=== PATIENT | female | born 2000 | race American Indian/Alaskan Native ===

== ENCOUNTER 2020-06-24 22:02 | Emergency (ER) | payer BC ==
[2020-06-24] MEDS ORDERED: Ondansetron 4 MG Tab.DIS PO ONE (22:22)
--- NOTE | 2020-06-24 22:26 | EDM.PDOC ---
ED HPI GENERAL MEDICAL PROBLEM - General Chief Complaint: Gastrointestinal Problem Stated Complaint: FOOD POISIONING Time Seen by Provider: 06/24/20 22:21 Source of Information: Reports: Patient, RN, RN Notes Reviewed History Limitations: Reports: No Limitations - History of Present Illness INITIAL COMMENTS - FREE TEXT/NARRATIVE: 19 year old female who presents to the ER after an emesis episode. 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 She states he vomited after leaving the patient's bathroom. She is cimplaining ot nausea. Symptoms have been ongoing for two hours. She reports eating at [employer] about two hours prior to this and states she felt instantly sick after eating the [employer] wrap. She states her nephew had the stomach bug a couple of days ago. She denies any fevers, chills, SOB, palpitations, chest, and UTI symptoms. ED ROS GENERAL - Review of Systems Review Of Systems: Comprehensive ROS is negative, except as noted in HPI. ED EXAM, GI/ABD - Physical Exam Exam: See Below Exam Limited By: No Limitations General Appearance: Alert, No Apparent Distress, Obese Eyes: Bilateral: Normal Appearance Ears: Normal External Exam, Normal Canal, Hearing Grossly Normal, Normal TMs Nose: Normal Inspection, Normal Mucosa, No Blood Throat/Mouth: Normal Inspection, Normal Lips, Normal Gums, Normal Oropharynx, Normal Voice, No Airway Compromise Head: Atraumatic, Normocephalic Neck: Normal Inspection, Supple, Non-Tender, Full Range of Motion Respiratory/Chest: No Respiratory Distress, Lungs Clear, Normal Breath Sounds, No Accessory Muscle Use, Chest Non-Tender Cardiovascular: Normal Peripheral Pulses, Regular Rate, Rhythm, No Edema, No Gallop, No JVD, No Murmur, No Rub GI/Abdominal Exam: Normal Bowel Sounds, Soft, Non-Tender, No Organomegaly, No Distention, No Abnormal Bruit, No Mass (Female) Exam: Deferred Rectal (Female) Exam: Deferred Back Exam: Normal Inspection, Full Range of Motion, NT Extremities: Normal Inspection, Normal Range of Motion, Non-Tender, Normal Capillary Refill, No Pedal Edema Neurological: Alert, Oriented Psychiatric: Normal Affect, Normal Mood Skin Exam: Warm Lymphatic: No Adenopathy Course - Vital Signs Last Recorded V/S: Last Vital Signs Temp 98.1 F 06/24/20 22:10 Pulse 130 H 06/24/20 22:10 Resp 16 06/24/20 22:10 BP 125/87 06/24/20 22:10 Pulse Ox 100 06/24/20 22:10 - Orders/Labs/Meds Meds: Medications Discontinued Medications Generic Name Dose Route Start Last Admin Trade Name Edelmira PRN Reason Stop Dose Admin Ondansetron HCl 4 mg 06/24/20 22:22 06/24/20 22:28 Ondansetron 4 Mg Tab.Dis PO 06/24/20 22:23 4 mg ONETIME ONE Administration Departure - Departure Time of Disposition: 23:09 Disposition: Home, Self-Care 01 Condition: Fair Clinical Impression: Gastroenteritis - Discharge Information Instructions: Viral Gastroenteritis, Adult, [id number] Forms: ED Department Discharge Care Plan Goals: Zofran administered with relief. Encouraged to push fluids with a bland diet and advianced diet gradually as tolerated. Good hand hygiene. Follow up with PCP in the upcoming weeks and return to the ER if symptoms worsens. Sepsis Event Note (ED) - Evaluation Sepsis Screening Result: No Definite Risk - Focused Exam Vital Signs: Vital Signs Temp Pulse Resp BP Pulse Ox 06/24/20 22:10 98.1 F 130 H 16 125/87 100
== END 2020-06-24 23:25 | disposition home or self-care (01) ==
LOC: DL.ED 22:02
DX: K52.9 Noninfective gastroenteritis and colitis, unspecified (principal)
CPT/HCPCS: 99283; A9270

== ENCOUNTER 2020-08-27 18:26 | Emergency (ER) | payer BC ==
[2020-08-27 19:36] LABS: ANION GAP 13.2 mEq/L (7-13); CHLORIDE,CL 103 mmol/L (98-107); SODIUM,NA 139 mmol/L (136-145)
[2020-08-27 19:38] LABS: ACETAMINOPHEN 0 ug/mL (10-30 (Therapeutic))
[2020-08-27] MEDS ORDERED: Acetaminophen 325 MG Tab PO ONE (20:25)
--- NOTE | 2020-08-27 20:45 | EDM.PDOCBH ---
ED HPI GENERAL MEDICAL PROBLEM - General Chief Complaint: Behavioral/Psych Stated Complaint: AMBULANCE Time Seen by Provider: 08/27/20 19:50 Source of Information: Reports: Patient, Other History Limitations: Reports: No Limitations - History of Present Illness INITIAL COMMENTS - FREE TEXT/NARRATIVE: ED with c/o felling anxious and having suicidal thought. Reports no plan, just tired of feeling this way. has been on medications in past but not currently as out of refills and not reestablished care. - Related Data Allergies Allergy/AdvReac Type Severity Reaction Status Date / Time No Known Allergies Allergy Verified 08/27/20 20:26 Home Meds: Home Meds . [No Known Home Meds] 08/27/20 [History] Past Medical History Psychiatric History: Reports: Depression Social & Family History - Family History Family Medical History: No Pertinent Family History - Caffeine Use Caffeine Use: Reports: None - Alcohol Use Days Per Week of Alcohol Use: 7 Number of Drinks Per Day: 12 Total Drinks Per Week: 84 - Recreational Drug Use Recreational Drug Use: No ED ROS GENERAL - Review of Systems Review Of Systems: Comprehensive ROS is negative, except as noted in HPI. ED EXAM, BEHAVIORAL HEALTH - Physical Exam Exam: See Below Exam Limited By: No Limitations General Appearance: Alert, Anxious, Obese Eye Exam: Bilateral Eye: Normal Inspection Ears: Normal External Exam, Hearing Grossly Normal Throat/Mouth: Normal Voice Head: Atraumatic, Normocephalic Neck: Full Range of Motion Respiratory/Chest: No Respiratory Distress, Normal Breath Sounds Neurological: Alert, Normal Cognition, Oriented x 3 Psychiatric: Alert, Normal Cognition, Poor Eye Contact, Withdrawn. No: Suicidal Plan Skin Exam: Warm, Dry, Intact, Normal color COURSE, BEHAVIORAL HEALTH COMP - Course Vital Signs: Last Vital Signs Temp 98.5 F 08/27/20 18:58 Pulse 71 08/27/20 18:58 Resp 16 08/27/20 18:58 BP 129/85 08/27/20 18:58 Pulse Ox 99 08/27/20 18:58 Orders, Labs, Meds: Laboratory Tests 08/27/20 08/27/20 08/27/20 Range/Units 19:10 19:10 19:10 WBC 10.2 H (5.0-10.0) 10^3/uL RBC 5.05 (4.2-5.4) 10^6/uL Hgb 15.3 (12.0-16.0) g/dL Hct 45.6 (37.0-47.0) % MCV 90.3 (80-100) fL MCH 30.3 (27.0-34.0) pg MCHC 33.6 (33.0-35.0) g/dL Plt Count 351 (150-450) 10^3/uL Neut % (Auto) 71.8 (42.2-75.2) % Lymph % (Auto) 18.2 L (20.5-50.1) % [place] % (Auto) 8.6 H (2-8) % Eos % (Auto) 0.9 L (1.0-3.0) % Baso % (Auto) 0.5 (0.0-1.0) % Sodium 139 (136-145) mmol/L Potassium 4.2 (3.5-5.1) mmol/L Chloride 103 (98-107) mmol/L Carbon Dioxide 27 (21-32) mmol/L Anion Gap 13.2 H (7-13) mEq/L BUN 11 (7-18) mg/dL Creatinine 0.76 (0.55-1.02) mg/dL Est Cr Clr Drug Dosing 123.40 mL/min Estimated GFR (MDRD) > 60 BUN/Creatinine Ratio 14.5 (No establ ref range) Glucose 87 (70-99) mg/dL Calcium 8.6 (8.5-10.1) mg/dL Total Bilirubin 0.5 (0.2-1.0) mg/dL AST 21 (15-37) U/L ALT 30 (14-59) U/L Alkaline Phosphatase 83 (46-116) U/L Total Protein 7.6 (6.4-8.2) g/dL Albumin 3.8 (3.4-5.0) g/dL Globulin 3.8 Albumin/Globulin Ratio 1.0 HCG, Qual Negative Urine Color (YELLOW) Urine Appearance (CLEAR) Urine pH (5.0-9.0) Ur Specific [place] (1.005-1.030) Urine Protein (NEGATIVE) Urine Glucose (UA) (NEGATIVE) Urine Ketones (NEGATIVE) Urine Occult Blood (NEGATIVE) Urine Nitrite (NEGATIVE) Urine Bilirubin (NEGATIVE) Urine Urobilinogen (0.2-1.0) mg/dL Ur Leukocyte Esterase (NEGATIVE) Urine RBC /HPF Urine WBC (0-5/HPF) /HPF Ur Epithelial Cells (NOT SEEN) /HPF Amorphous Sediment (NOT SEEN) /HPF Urine Bacteria (0-FEW/HPF) /HPF Urine Mucus (NOT SEEN) /LPF Salicylates < 2.8 L (2.8-20(Therapeutic)) mg/dL Urine Opiates Screen (NEGATIVE) Ur Oxycodone Screen (NEGATIVE) Urine Methadone Screen (NEGATIVE) Acetaminophen 0 L (10-30 (Therapeutic)) ug/mL Ur Barbiturates Screen (NEGATIVE) U Tricyclic Antidepress (NEGATIVE) Ur Phencyclidine Scrn (NEGATIVE) Ur Amphetamine Screen (NEGATIVE) U Methamphetamines Scrn (NEGATIVE) Urine MDMA Screen (NEGATIVE) U Benzodiazepines Scrn (NEGATIVE) Urine Cocaine Screen (NEGATIVE) U Marijuana (THC) Screen (NEGATIVE) Ethyl Alcohol < 3 (0) mg/dL 08/27/20 08/27/20 Range/Units 20:22 20:22 WBC (5.0-10.0) 10^3/uL RBC (4.2-5.4) 10^6/uL Hgb (12.0-16.0) g/dL Hct (37.0-47.0) % MCV (80-100) fL MCH (27.0-34.0) pg MCHC (33.0-35.0) g/dL Plt Count (150-450) 10^3/uL Neut % (Auto) (42.2-75.2) % Lymph % (Auto) (20.5-50.1) % [place] % (Auto) (2-8) % Eos % (Auto) (1.0-3.0) % Baso % (Auto) (0.0-1.0) % Sodium (136-145) mmol/L Potassium (3.5-5.1) mmol/L Chloride (98-107) mmol/L Carbon Dioxide (21-32) mmol/L Anion Gap (7-13) mEq/L BUN (7-18) mg/dL Creatinine (0.55-1.02) mg/dL Est Cr Clr Drug Dosing mL/min Estimated GFR (MDRD) BUN/Creatinine Ratio (No establ ref range) Glucose (70-99) mg/dL Calcium (8.5-10.1) mg/dL Total Bilirubin (0.2-1.0) mg/dL AST (15-37) U/L ALT (14-59) U/L Alkaline Phosphatase (46-116) U/L Total Protein (6.4-8.2) g/dL Albumin (3.4-5.0) g/dL Globulin Albumin/Globulin Ratio HCG, Qual Urine Color Yellow (YELLOW) Urine Appearance Slightly cloudy (CLEAR) Urine pH 6.0 (5.0-9.0) Ur Specific [place] 1.025 (1.005-1.030) Urine Protein Negative (NEGATIVE) Urine Glucose (UA) Negative (NEGATIVE) Urine Ketones 15 H (NEGATIVE) Urine Occult Blood Small H (NEGATIVE) Urine Nitrite Negative (NEGATIVE) Urine Bilirubin Negative (NEGATIVE) Urine Urobilinogen 1.0 (0.2-1.0) mg/dL Ur Leukocyte Esterase Negative (NEGATIVE) Urine RBC 10-20 H /HPF Urine WBC 0-5 (0-5/HPF) /HPF Ur Epithelial Cells Few (NOT SEEN) /HPF Amorphous Sediment Few (NOT SEEN) /HPF Urine Bacteria Few (0-FEW/HPF) /HPF Urine Mucus Few H (NOT SEEN) /LPF Salicylates (2.8-20(Therapeutic)) mg/dL Urine Opiates Screen Negative (NEGATIVE) Ur Oxycodone Screen Negative (NEGATIVE) Urine Methadone Screen Negative (NEGATIVE) Acetaminophen (10-30 (Therapeutic)) ug/mL Ur Barbiturates Screen Negative (NEGATIVE) U Tricyclic Antidepress Negative (NEGATIVE) Ur Phencyclidine Scrn Negative (NEGATIVE) Ur Amphetamine Screen Negative (NEGATIVE) U Methamphetamines Scrn Negative (NEGATIVE) Urine MDMA Screen Negative (NEGATIVE) U Benzodiazepines Scrn Negative (NEGATIVE) Urine Cocaine Screen Negative (NEGATIVE) U Marijuana (THC) Screen Negative (NEGATIVE) Ethyl Alcohol (0) mg/dL Medications Discontinued Medications Generic Name Dose Route Start Last Admin Trade Name Freq PRN Reason Stop Dose Admin Acetaminophen 650 mg 08/27/20 20:25 08/27/20 20:28 Acetaminophen 325 Mg Tab PO 08/27/20 20:26 650 mg NOW ONE Administration Departure - Departure Time of Disposition: 20:44 Disposition: Home, Self-Care 01 Condition: Good Clinical Impression: Anxiety, Passive suicidal ideations - Discharge Information *PRESCRIPTION DRUG MONITORING PROGRAM REVIEWED*: No *COPY OF PRESCRIPTION DRUG MONITORING REPORT IN PATIENT RAKESH: No Instructions: Suicidal Feelings: How to Help Yourself Referrals: PCP,None [Primary Care Provider] - Forms: ED Department Discharge Additional Instructions: Follow up with safety plan followup with mental health counselor urgent follow up if symptoms worsen Sepsis Event Note (ED) - Evaluation Sepsis Screening Result: No Definite Risk - Focused Exam Vital Signs: Vital Signs Temp Pulse Resp BP Pulse Ox 08/27/20 18:58 98.5 F 71 16 129/85 99
== END 2020-08-27 20:52 | disposition home or self-care (01) ==
LOC: DL.ED 18:26
DX: F41.9 Anxiety disorder, unspecified (principal)
CPT/HCPCS: 36415; 80053; 80143; 80179; 80305; 80307; 81001; 84703; 85025; 99283; 99284; A9270

== ENCOUNTER 2020-09-24 21:11 | Emergency (ER) | payer BC ==
[2020-09-24] MEDS ORDERED: Cephalexin 500 MG Cap PO ONE (21:56)
[2020-09-24] MEDS ORDERED: Phenazopyridine 95 MG Tab PO ONE (21:56)
--- NOTE | 2020-09-24 22:04 | EDM.PDOC ---
ED HPI GENERAL MEDICAL PROBLEM - General Chief Complaint: Genitourinary Problem Stated Complaint: UTI - PER PT Time Seen by Provider: 09/24/20 21:52 Source of Information: Reports: Patient History Limitations: Reports: No Limitations - History of Present Illness INITIAL COMMENTS - FREE TEXT/NARRATIVE: This 20 year old female reports to the ED with urinary hesitancy, burning and urgency that started today. The patient reports she has a history of frequent urinary tract infections. The patient reports her symptoms started earlier today, but have been getting progressively worse throughout the day. Onset: Today Duration: Constant, Getting Worse Location: Reports: Other Quality: Reports: Other Severity: Moderate Improves with: Reports: None Worsens with: Reports: None Context: Reports: Other Associated Symptoms: Reports: No Other Symptoms Bladder Pain Score (Numeric/FACES): 6 - Related Data Allergies Allergy/AdvReac Type Severity Reaction Status Date / Time No Known Allergies Allergy Verified 09/24/20 21:24 Home Meds: Home Meds . [No Known Home Meds] 08/27/20 [History] Past Medical History Genitourinary History: Reports: UTI, Recurrent, Other (See Below) Other Genitourinary History: frequent bv Psychiatric History: Reports: Depression - Past Surgical History HEENT Surgical History: Reports: Oral Surgery Musculoskeletal Surgical History: Reports: Other (See Below) Other Musculoskeletal Surgeries/Procedures:: lt ankle repair after fx Social & Family History - Family History Family Medical History: No Pertinent Family History - Tobacco Use Tobacco Use Status *Q: Current Every Day Tobacco User Years of Tobacco use: 4 Packs/Tins Daily: 0.5 Used Tobacco, but Quit: No Second Hand Smoke Exposure: No - Caffeine Use Caffeine Use: Reports: Soda - Recreational Drug Use Recreational Drug Use: No ED ROS GENERAL - Review of Systems Review Of Systems: Comprehensive ROS is negative, except as noted in HPI. ED EXAM, RENAL/ - Physical Exam Exam: See Below Exam Limited By: No Limitations General Appearance: Alert, WD/WN, Moderate Distress Eye Exam: Bilateral Eye: EOMI, Normal Inspection, PERRL Ears: Normal External Exam, Normal Canal, Hearing Grossly Normal, Normal TMs Nose: Normal Inspection, Normal Mucosa, No Blood Throat/Mouth: Normal Inspection, Normal Lips, Normal Teeth, Normal Gums, Normal Oropharynx, Normal Voice, No Airway Compromise Head: Atraumatic, Normocephalic Neck: Normal Inspection, Supple, Non-Tender, Full Range of Motion Respiratory/Chest: No Respiratory Distress, Lungs Clear, Normal Breath Sounds, No Accessory Muscle Use, Chest Non-Tender Cardiovascular: Normal Peripheral Pulses, Regular Rate, Rhythm, No Edema, No Gallop, No JVD, No Murmur, No Rub GI/Abdominal: Normal Bowel Sounds, Soft, Non-Tender, No Organomegaly, No Distention, No Abnormal Bruit, No Mass, Pelvis Stable (Female) Exam: Deferred Rectal (Female) Exam: Deferred Back Exam: Normal Inspection, Full Range of Motion, NT Extremities: Normal Inspection, Normal Range of Motion, Non-Tender, Normal Capillary Refill, No Pedal Edema Neurological: Alert, Oriented, CN II-XII Intact, Normal Cognition, Normal Gait, Normal Reflexes, No Motor/Sensory Deficits Psychiatric: Normal Affect, Normal Mood Skin Exam: Warm, Dry, Intact, Normal Color, No Rash Lymphatic: No Adenopathy Course - Vital Signs Last Recorded V/S: Last Vital Signs Temp 97.5 F 09/24/20 21:15 Pulse 60 09/24/20 21:15 Resp 18 09/24/20 21:15 BP 150/75 H 09/24/20 21:15 Pulse Ox 99 09/24/20 21:15 - Orders/Labs/Meds Orders: Active Orders 24 hr Category Date Time Status CULTURE URINE [RM] Stat Lab 09/24/20 21:14 Received Labs: Laboratory Tests 09/24/20 Range/Units 21:14 Urine Color Yellow (YELLOW) Urine Appearance Cloudy (CLEAR) Urine pH 6.0 (5.0-9.0) Ur Specific [place] >= 1.030 (1.005-1.030) Urine Protein Negative (NEGATIVE) Urine Glucose (UA) Negative (NEGATIVE) Urine Ketones Negative (NEGATIVE) Urine Occult Blood Moderate H (NEGATIVE) Urine Nitrite Negative (NEGATIVE) Urine Bilirubin Negative (NEGATIVE) Urine Urobilinogen 0.2 (0.2-1.0) mg/dL Ur Leukocyte Esterase Moderate H (NEGATIVE) Urine RBC 10-20 H /HPF Urine WBC >100 H (0-5/HPF) /HPF Ur Epithelial Cells Occasional (NOT SEEN) /HPF Amorphous Sediment Occasional (NOT SEEN) /HPF Urine Bacteria Many H (0-FEW/HPF) /HPF Urine Mucus Occasional (NOT SEEN) /LPF Meds: Medications Discontinued Medications Generic Name Dose Route Start Last Admin Trade Name Markq PRN Reason Stop Dose Admin Cephalexin 500 mg 09/24/20 21:56 Cephalexin 500 Mg Cap PO 09/24/20 21:57 ONETIME ONE Phenazopyridine HCl 190 mg 09/24/20 21:56 Phenazopyridine 95 Mg Tab PO 09/24/20 21:57 ONETIME ONE Departure - Departure Time of Disposition: 22:00 Disposition: Home, Self-Care 01 Condition: Fair Clinical Impression: UTI, Urinary tract infectious disease - Discharge Information *PRESCRIPTION DRUG MONITORING PROGRAM REVIEWED*: Not Applicable *COPY OF PRESCRIPTION DRUG MONITORING REPORT IN PATIENT RAKESH: Not Applicable Instructions: Urinary Tract Infection, Adult, [facility] Forms: ED Department Discharge Care Plan Goals: The patient was advised of the examination and lab results during the visit. The patient was given an oral dose of Keflex (antibiotic) and Pyridium (relieves symptoms from a UTI) while in the ED. The patient was discharged with a script for Keflex (500 mg) #21 to take 1 by mouth 3 times per day for 7 days and Pyridium (200 mg) #6 to take 1 by mouth 3 times per day. The patient was encouraged to increase her oral fluid intake. If the patient has any additional symptoms or concerns, the patient should either return to the emergency department or visit her primary care facility. Sepsis Event Note (ED) - Evaluation Sepsis Screening Result: No Definite Risk - Focused Exam Vital Signs: Vital Signs Temp Pulse Resp BP Pulse Ox 09/24/20 21:15 97.5 F 60 18 150/75 H 99 - My Orders Last 24 Hours: My Active Orders 09/24/20 21:14 CULTURE URINE [RM] Stat - Assessment/Plan Last 24 Hours: My Active Orders 09/24/20 21:14 CULTURE URINE [RM] Stat
== END 2020-09-24 22:10 | disposition home or self-care (01) ==
LOC: DL.ED 21:11
DX: N39.0 Urinary tract infection, site not specified (principal); Z72.0 Tobacco use
CPT/HCPCS: 81001; 87086; 87088; 87186; 99283; A9270

== ENCOUNTER 2021-01-24 18:50 | Emergency (ER) | payer BC | END 2021-01-24 21:03 | disposition left against medical advice (07) | LOC: DL.ED 18:50 | DX: R63.0 Anorexia (principal); Z53.21 Procedure and treatment not carried out due to patient leaving prior to being seen by health care provider ==

== ENCOUNTER 2023-08-16 20:55 | Emergency (ER) | payer BC ==
[2023-08-16 21:51] LABS: BASOPHILS PERCENT AUTO 0.2 % (0.0-1.0); EOSINOPHILS PERCENT AUTO 0.9 % (1.0-3.0); HEMATOCRIT 45.7 % (37.0-47.0); HEMOGLOBIN 15.8 g/dL (12.0-16.0); LYMPHOCYTES PERCENT AUTO 6.6 % (20.5-50.1); MEAN CORPUSCULAR HEMOGLOBIN 30.6 pg (27.0-34.0); MEAN CORPUSCULAR HGB CONC 34.6 g/dL (33.0-35.0); MEAN CORPUSCULAR VOLUME 88.4 fL (80-100); MONOCYTES PERCENT AUTO 5.2 % (2-8); NEUTROPHILS PERCENT AUTO 87.1 % (42.2-75.2); PLATELET COUNT,PLT 342 10^3/uL (150-450); RED BLOOD CELL COUNT 5.17 10^6/uL (4.2-5.4); WHITE BLOOD CELL COUNT,WBC 18.2 10^3/uL (5.0-10.0)
[2023-08-16] MEDS: Famotidine 20 MG/2 ML SDV IVPUSH ONE (21:53)
[2023-08-16] MEDS: Sodium Chloride 0.9% 1,000 ML IV ONE (21:53)
[2023-08-16] MEDS: Ondansetron 4 MG/2 ML SDV IVPUSH ONE (21:53)
[2023-08-16 22:10] LABS: A/G RATIO 0.9; ALANINE AMINOTRANSFERASE,ALT 30 U/L (14-59); ALBUMIN 3.8 g/dL (3.4-5.0); ALKALINE PHOSPHATASE 97 U/L (46-116); ANION GAP 17.1 mEq/L (7-13); ASPARTATE AMNIOTRANSFERASE,AST 17 U/L (15-37); BILIRUBIN TOTAL 0.7 mg/dL (0.2-1.0); BLOOD UREA NITROGEN,BUN 12 mg/dL (7-18); BUN/CREATININE RATIO 19.4 (No establ ref range); CALCIUM 8.5 mg/dL (8.5-10.1); CARBON DIOXIDE,CO2 23 mmol/L (21-32); CHLORIDE,CL 104 mmol/L (98-107); CREATININE 0.62 mg/dL (0.55-1.02); EST CRCL DRUG DOSING (CG) 147.48 mL/min; GLUCOSE RANDOM 95 mg/dL (70-99); LIPASE 17 U/L (16-77); MAGNESIUM 1.7 mg/dL (1.8-2.4); POTASSIUM,K 4.1 mmol/L (3.5-5.1); PROTEIN TOTAL,TP 8.1 g/dL (6.4-8.2); SODIUM,NA 140 mmol/L (136-145)
[2023-08-16 22:12] LABS: ESTIMATED GFR 128 mL/min (>=60); ETHANOL BLOOD MEDICAL < 3 mg/dL (0); HCG QUALITATIVE,SERUM NEGATIVE (NEGATIVE)
[2023-08-16] MEDS: Iopamidol 612 MG/ML 100 ML Bottle IVPUSH ONE ×2 (22:32→22:33)
[2023-08-16 22:36] LABS: APPEARANCE,URINE CLEAR (CLEAR); BILIRUBIN,URINE SMALL (NEGATIVE); COLOR,URINE YELLOW (YELLOW); GLUCOSE,URINE NEGATIVE (NEGATIVE); KETONES,URINE 80 (NEGATIVE); LEUKOCYTE ESTERASE,URINE SMALL (NEGATIVE); NITRITE,URINE NEGATIVE (NEGATIVE); OCCULT BLOOD,URINE SMALL (NEGATIVE); PROTEIN,URINE NEGATIVE (NEGATIVE)
[2023-08-16 22:40] LABS: AMPHETAMINES,URINE NEGATIVE (NEGATIVE); BARBITURATES,URINE NEGATIVE (NEGATIVE); BENZODIAZEPINE,URINE NEGATIVE (NEGATIVE); MDMA (ECSTASY), URINE NEGATIVE (NEGATIVE); METHADONE,URINE NEGATIVE (NEGATIVE); METHAMPHETAMINES,URINE NEGATIVE (NEGATIVE); OPIATES,URINE NEGATIVE (NEGATIVE); OXYCODONE,URINE NEGATIVE (NEGATIVE); PHENCYCLIDINE,URINE NEGATIVE (NEGATIVE); TCA,URINE NEGATIVE (NEGATIVE)
[2023-08-16 22:48] LABS: BACTERIA,URINE MODERATE /HPF (0-FEW/HPF); EPITHELIAL CELLS,URINE MODERATE /HPF (NOT SEEN); RBC,URINE 0-5 /HPF (0-5)
[2023-08-16 22:49] LABS: MUCUS,URINE FEW /LPF (NOT SEEN)
[2023-08-17] MEDS: Magnesium Sulfate/Water 2 GM in Premix Bag 1 BAG IV ONE (00:26)
[2023-08-17] MEDS: cefTRIAXone 1 GM Vial IVPUSH ONE (00:26)
== END 2023-08-17 02:25 | disposition home or self-care (01) ==
LOC: DL.ED 20:55
DX: E86.0 Dehydration (principal); N39.0 Urinary tract infection, site not specified; E83.42 Hypomagnesemia; F17.290 Nicotine dependence, other tobacco product, uncomplicated; Z79.899 Other long term (current) drug therapy
CPT/HCPCS: 36415; 74177; 80053; 80305-QW; 80307; 81001; 83690; 83735; 84703; 85025; 87086; 96361; 96365; 96366; 96375; 99284; 99284-25; J0696; J2405; J3475; J3490; J7030; Q9967